=== PATIENT | female | born 1970 | race Caucasian/White ===

== ENCOUNTER 2016-08-11 10:21 | Emergency (ER) | payer OTHER ==
[~2016-08-11] VITALS: Ht 160 cm; Wt 83.0 kg
[~2016-08-11 10:21] MED LIST: NAPR-576 PO; PROT40TA PO; PROZ20CA11 PO; ROBA750T3 PO
[2016-08-11 10:30] VITALS: BP 139/83; PULSE 130; RESP 16; TEMP 97.7; O2SAT 99
[2016-08-11] MEDS ORDERED: PROZ20CA11 PO (10:55)
[2016-08-11] MEDS ORDERED: COLITIS MEDICATION PO (10:55)
[2016-08-11] MEDS ORDERED: PANT20TA2 PO (10:55)
[2016-08-11] MEDS ORDERED: [UNRECOGNIZED DRUG - REMARK] PO (10:55)
[2016-08-11] MEDS ORDERED: PHEN37.54 PO (11:00)
[2016-08-11] MEDS ORDERED: ASAC800T PO (11:00)
[2016-08-11] MEDS ORDERED: LORazepam 2 MG/ML VIAL IV PUSH ONE (11:00)
[2016-08-11] MEDS ORDERED: SODIUM CHLOR 0.9% 1000 ML INJ 1,000 ML IV SCH (11:00)
[2016-08-11 11:11] VITALS: O2SAT 99
--- NOTE | 2016-08-11 11:13 | PD ---
HPI Chief Complaint: Cardiac Complaint Time Seen by Provider: 10:44 Travel History International Travel<30 days: No Contact w/Intl Traveler<30days: No Traveled to known affect area: No History of Present Illness HPI 46-year-old woman who presents emergent from complaining that she got palpitations and flushing in her chest and short of breath this morning. Symptoms continued and when she went to work. At work she began having cold sweats on her neck. The nurse there took the blood pressure they were unable to get the machine read it. She's not had previous similar symptoms. Started phentermine this past week. States she was feeling weird before she even took this morning however. Her also lost his job yesterday and she been under more stress. No history of anxiety or panic attacks in the past. She had blood work done earlier this week including thyroid tests that she says was negative. History Past Medical History Narrative Medical Depression Obesity Tetanus Vaccination: < 5 Years LMP: 08/01/2015 Social History Alcohol Use: Yes (OCCASIONAL) Tobacco Use: No (FORMER) Allergies-Medications (Allergen,Severity, Reaction): Coded Allergies: No Known Allergies (Unverified , 08/11/16) Reported Meds & Prescriptions Reported Meds & Active Scripts Active Reported Phentermine (Phentermine HCl) 37.5 Mg Cap 37.5 Mg PO DAILY Asacol HD (Mesalamine) 800 Mg Tab 800 Mg PO TID Swallow whole. Take on an empty stomach. Pantoprazole (Pantoprazole Sodium) 20 Mg Tab 20 Mg PO BID Prozac (Fluoxetine HCl) 20 Mg Cap 20 Mg PO BID Review of Systems Except as stated in HPI: all other systems reviewed are Neg Physical Exam Narrative GENERAL: Well-appearing 46-year-old woman, no acute distress. SKIN: Warm and dry. NECK: Trachea midline. No JVD. No palpable thyromegaly or tenderness. CARDIOVASCULAR: Heart rate rapid but regular. RESPIRATORY: No accessory muscle use. Clear to auscultation. Breath sounds equal bilaterally. GASTROINTESTINAL: Abdomen soft, non-tender, nondistended. Hepatic and splenic margins not palpable. MUSCULOSKELETAL: No obvious deformities. No edema. NEUROLOGICAL: Awake and alert. No obvious cranial nerve deficits. Motor grossly within normal limits. Normal speech. PSYCHIATRIC: Appropriate mood and affect; insight and judgment normal. Data Data Last Documented VS Vital Signs Date Time Temp Pulse Resp B/P Pulse Ox O2 Delivery O2 Flow Rate FiO2 08/11/16 11:29 18 99 Room Air 08/11/16 10:35 130 08/11/16 10:30 97.7 139/83 Orders Electrocardiogram (08/11/16 11:00) Complete Blood Count With Diff (08/11/16 11:00) Comprehensive Metabolic Panel (08/11/16 11:00) D-Dimer (08/11/16 11:00) Magnesium (Mg) (08/11/16 11:00) Troponin I (08/11/16 11:00) Chest, Single Ap (08/11/16 11:00) Ecg Monitoring (08/11/16 11:00) Iv Access Insert/Monitor (08/11/16 11:00) Oximetry (08/11/16 11:00) Oxygen Administration (08/11/16 11:00) Sodium Chloride 0.9% Flush (Ns Flush) (08/11/16 11:00) Lorazepam Inj (Ativan Inj) (08/11/16 11:00) Sodium Chlor 0.9% 1000 Ml Inj (Ns 1000 M (08/11/16 11:00) Ondansetron Inj (Zofran Inj) (08/11/16 11:15) Labs Laboratory Tests Test 08/11/16 11:07 White Blood Count 6.0 TH/MM3 Red Blood Count 4.78 MIL/MM3 Hemoglobin 12.6 GM/DL Hematocrit 38.6 % Mean Corpuscular Volume 80.7 FL Mean Corpuscular Hemoglobin 26.3 PG Mean Corpuscular Hemoglobin 32.7 % Concent Red Cell Distribution Width 17.0 % Platelet Count 232 TH/MM3 Mean Platelet Volume 10.2 FL Neutrophils (%) (Auto) 63.5 % Lymphocytes (%) (Auto) 27.4 % Monocytes (%) (Auto) 6.2 % Eosinophils (%) (Auto) 1.7 % Basophils (%) (Auto) 1.2 % Neutrophils # (Auto) 3.8 TH/MM3 Lymphocytes # (Auto) 1.6 TH/MM3 Monocytes # (Auto) 0.4 TH/MM3 Eosinophils # (Auto) 0.1 TH/MM3 Basophils # (Auto) 0.1 TH/MM3 CBC Comment DIFF FINAL Differential Comment D-Dimer Quantitative (PE/DVT) LESS THAN 0.19 MG/L FEU Sodium Level 144 MEQ/L Potassium Level 4.1 MEQ/L Chloride Level 108 MEQ/L Carbon Dioxide Level 22.7 MEQ/L Anion Gap 13 MEQ/L Blood Urea Nitrogen 15 MG/DL Creatinine 0.90 MG/DL Estimat Glomerular Filtration 67 ML/MIN Rate Random Glucose 107 MG/DL Calcium Level 8.8 MG/DL Magnesium Level 1.6 MG/DL Total Bilirubin 0.6 MG/DL Aspartate Amino Transf 49 U/L (AST/SGOT) Alanine Aminotransferase 44 U/L (ALT/SGPT) Alkaline Phosphatase 76 U/L Troponin I LESS THAN 0.02 NG/ML Total Protein 7.7 GM/DL Albumin 3.5 GM/DL [facility] Medical Decision Making Medical Screen Exam Complete: Yes Emergency Medical Condition: Yes Interpretation(s) My review of EKG: Sinus tachycardia rate of 131, normal axis, normal intervals, no acute ischemia. LABS: CBC is unremarkable. CMP is unremarkable. Troponin is negative. D-dimer is undetectable Chest x-ray negative. Differential Diagnosis Adverse effect of the medication, anxiety or stress reaction, PE, arrhythmia, other Narrative Course Medical decision making INITIAL: 46-year-old woman presents to the emergency department complaining of palpitations shortness of breath and cold sweats, found to have a sinus tachycardia. She started phentermine this past week. She is hasn't had this reaction earlier. She has been under more stress. No risk factors for PE. We' ll check labs including d-dimer, chest x-ray, EKG. She states she had thyroid testing done earlier this week which was normal. Reassess. Diagnosis Primary Impression: Palpitations Additional Impression: Adverse effects of medication Qualified Code: T88.7XXA - Adverse effects of medication, initial encounter Additional Instructions: Avoid taking phentermine until he follow up with her primary doctor. Drink plenty of fluids stay well-hydrated. Return to the emergency department for any new or worsening symptoms. Med/Other Pt SpecificInfo: Existing Med Changed Disposition: 01 DISCHARGE HOME Condition: Stable Ken Lal MD Aug 11, 2016 11:13
[2016-08-11] MEDS ORDERED: ONDANSETRON HCL 4 MG/2 ML VIAL IV ONE (11:15)
[2016-08-11 11:16] LABS: AUTOMATED NEUTROPHIL # 3.8 TH/MM3 (1.8-7.7); BASOPHIL # 0.1 TH/MM3 (0-0.2); BASOPHIL % 1.2 % (0.0-2.0); EOSINOPHIL # 0.1 TH/MM3 (0-0.4); EOSINOPHIL % 1.7 % (0.0-4.0); HEMATOCRIT 38.6 % (35.0-46.0); HEMO FLAGS DIFF FINAL; LYMPH % 27.4 % (9.0-44.0); LYMPHOCYTE # 1.6 TH/MM3 (1.0-4.8); MEAN CELL VOLUME 80.7 FL (80.0-100.0); MEAN CORPUSCULAR HEMOGLOBIN 26.3 PG (27.0-34.0); MEAN CORPUSCULAR HGB CONC 32.7 % (32.0-36.0); MONO % 6.2 % (0.0-8.0); NEUT % 63.5 % (16.0-70.0); PLATELET COUNT 232 TH/MM3 (150-450); RED BLOOD COUNT 4.78 MIL/MM3 (4.00-5.30)
[2016-08-11] MEDS: SODIUM CHLORIDE 0.9% FLUSH 5 ML FLUSH IVF PRN ×2 (11:22→12:47)
[2016-08-11 11:28] LABS: CHLORIDE 108 MEQ/L (98-107); POTASSIUM 4.1 MEQ/L (3.5-5.1); SODIUM (NA) 144 MEQ/L (136-145)
[2016-08-11 11:32] LABS: ANION GAP 13 MEQ/L (5-15); BICARBONATE 22.7 MEQ/L (21.0-32.0); BLOOD UREA NITROGEN 15 MG/DL (7-18); MAGNESIUM 1.6 MG/DL (1.5-2.5)
[2016-08-11 11:35] LABS: ALT (GPT) 44 U/L (10-53); AST (GOT) 49 U/L (15-37); GLOMERULAR FILTRATION RATE 67 ML/MIN (>89)
[2016-08-11 11:36] LABS: TOTAL BILIRUBIN ADULT 0.6 MG/DL (0.2-1.0)
[2016-08-11 11:38] LABS: ALKALINE PHOSPHATASE 76 U/L (45-117)
--- NOTE | 2016-08-11 11:57 | RADHPO ---
EXAM DATE/TIME: 08/11/2016 11:39 [facility] COMPARISON: CHEST PA & LAT, January 13, 2016, 12:05. INDICATIONS : Chest pain, short of breath. MEDICAL HISTORY : None. SURGICAL HISTORY : None. ENCOUNTER: Initial ACUITY: 1 day PAIN SCORE: 2/10 LOCATION: Bilateral chest FINDINGS: Portable AP view of the chest demonstrates a normal-sized cardiac silhouette. No effusion, consolidat ion, or pneumothorax is visualized. The bones and soft tissues demonstrate no acute abnormality. CONCLUSION: No acute cardiopulmonary abnormality is identified. Carson Montes De Oca MD on August 11, 2016 at 11:54 Board Certified Radiologist. This report was verified electronically.
[2016-08-11 12:05] VITALS: BP 132/88; PULSE 118; RESP 16; O2SAT 99
--- NOTE | 2016-08-12 17:58 | EKG ---
Date Performed: 08/11/2016 Time Performed: 10:25:00 PTAGE: 46 years EKG: Sinus tachycardia Low QRS voltages in precordial leads Borderline ECG NO PREVIOUS TRACING DOCTOR: Heather Perez Interpretating Date/Time 08/12/2016 17:58:00
== END 2016-08-11 13:00 | disposition home or self-care (01) ==
LOC: PHED 10:21
DX: R00.2 Palpitations (principal); R00.0 Tachycardia, unspecified; R06.02 Shortness of breath; R07.9 Chest pain, unspecified
CPT/HCPCS: 71010; 80053; 83735; 84484; 85025; 85379; 93005; 96361; 96374; 96375; 99285; J2060; J2405; J7030